=== PATIENT | male | born 1990 | race Caucasian/White ===

== ENCOUNTER 2023-10-01 10:24 | Emergency (ER) | payer BC, SELFPAY ==
[2023-10-01 10:42] VITALS: BP 129/88
--- NOTE | 2023-10-01 11:38 | ED.MUSCINJ ---
HPI-Injury
General
Chief Complaint: Musculo-Skeletal Complaint
Source: patient
Exam Limitations: none
Time Seen by Provider: 10/01/23 10:52
Nursing documentation reviewed up to this point in time: agreed with
Travel History
Have you had any contact with someone who has COVID-19?: No
Do you have any symptoms of coronavirus? Fever > 100 degrees, chills, cough, shortness of breath, sore throat, loss of taste or smell, muscle aches, or headache?: No
History of Present Illness-Injury
Initial Injury comments:
32-year-old male had blood work drawn from left antecubital area 6 days ago, initially no problem but awakened yesterday morning with pain in the area, mild swelling and ecchymosis, red streak up the upper arm. The red streak has faded but the area
remains tender. Denies weakness or numbness distal to this.
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
Denies fever or chills, denies SOB or CP
Past History
Past History
ED Past Medical History: None and Other (Tourette's syndrome-takes no medications for this)
ED Past Surgical History: None
Social History
Tobacco: Smoker (Pack a day)
Alcohol: Occasional
Drug: None
Living: with family
Employment: Employed
Family History
Family History: Hypertension
Review of Systems
Review of Systems
Allergies reviewed?: Yes
All Other Systems: ROS reviewed and negative except as documented in HPI and ROS
Constitutional: Denies fever or chills
Respiratory: Denies trouble breathing
Cardiac: Denies chest pain
ABD/GI: Denies nausea
Musculoskeletal: Reports other (pain, mild swelling left antecubital area)
Skin: Reports other (mild local bruise )
Neurological: Denies weakness or numbness
Phy Exam
Physical Exam
Physical Exam:
GENERAL: No acute distress. A&Ox3.
CONSTITUTIONAL: Afebrile.
RESPIRATORY: Regular respirations, nonlabored, lungs clear.
CARDIOVASCULAR: Regular rate and rhythm, no murmurs, no rubs.
MUSCULOSKELETAL: Full range of motion left upper extremity. Distal neurovascular intact. Moves with ease. Well perfused.
SKIN: Warm, dry, pink, mild local ecchymosis left antecubital area, no lymphangitis, surrounding skin is normal without redness, warmth or significant swelling.
PSYCH: Normal mood and affect. Well kept, interactive and appropriate
NEUROLOGIC: Awake, alert and oriented. No focal neurological deficits
Injury Course
Orders/Labs/Results
Orders:
Orders
10/01/23 10:57
Perip Venous UPPER Ext LT Urgent
Comment:
Reason For Exam: pain at & above site of blood draw a week ago
MDM/Problems Addressed
Differential Diagnosis Includes:
phlebitis, DVT, cellulitis
MDM/Problems Addressed:
32-year-old male had blood work drawn from left antecubital area 6 days ago, initially no problem but awakened yesterday morning with pain in the area, mild swelling and ecchymosis, red streak up the upper arm. The red streak has faded but the area
remains tender. Denies weakness or numbness distal to this.
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
Denies fever or chills, denies SOB or CP
1300 p.m. ultrasound of the left upper extremity is normal
*Critical Care Note
Total Time (30-74mins, 75-104mins- exclusive of procedures): Not Applicable
ED Attending Note
-
Portions of this chart may have been created with voice recognition software.� Occasional wrong word or��sound alike� substitutions may have occurred due to the inherent limitations of voice recognition software.
Discharge Plan
Departure
Patient Disposition: Home (Routine Discharge)
Date of Disposition: 10/01/23
Time of Disposition: 13:15
Patient with high blood pressure during this ER visit?: No
Condition: Good
Discharge Problem:
Superficial phlebitis
Instructions: Superficial vein phlebitis and thrombosis
Prescriptions:
No Action
ibuprofen 600 MG tablet
600 mg PO Q6HPRN PRN (Reason: pain) Qty: 20 0RF
aspirin [Adult Aspirin Regimen] 81 MG tablet,delayed release (DR/EC)
81 mg PO PRN PRN (Reason: prophylaxis)
promethazine 25 MG tablet
25 mg PO Q6HPRN PRN (Reason: dizziness, nausea) Qty: 12 0RF
methylprednisolone [Medrol (Lorenzo)] 4 mg tablets,dose pack
See Rx Instructions .ROUTE .COMPLEX Qty: 21 0RF
Rx Instructions:
orally per package directions
Referrals:
Wander Milian MD [Family Provider] - As needed
Activity Restrictions/Additional Instructions:
As we discussed, no worrisome clot on your ultrasound.
Ibuprofen or Tylenol, warm compresses as needed.
Interventions
Interventions:
*General Assessment Last Done: 10/01/23 13:45
*Nursing Disposition Last Done: 10/01/23 13:45
ED-Musculoskeletal Assessment Last Done: 10/01/23 13:29
Discharge Date and Time
Discharge Date/Time: 10/01/23 13:45
Print Language: GERMAN
== END 2023-10-01 13:45 | disposition home or self-care (01) ==
LOC: EMR 10:24
PROVIDERS: EMERGENCY PHYSICIAN Emergency Medicine; FAMILY PHYSICIAN Internal Medicine
DX: I80.8 Phlebitis and thrombophlebitis of other sites (principal); F17.210 Nicotine dependence, cigarettes, uncomplicated
CPT/HCPCS: 99284; 93971